=== PATIENT | male | born 1960 | race Caucasian/White ===

== ENCOUNTER 2017-01-15 23:44 | Emergency (ER) | payer BC ==
[~2017-01-15] VITALS: Ht 175.2 cm; Wt 63.5 kg
[2017-01-16] MEDS ORDERED: SEPTDS PO (00:07)
[2017-01-16] MEDS ORDERED: KEFLEX500 M1 PO (00:07)
[2017-01-16] MEDS ORDERED: PERCOCET 5-3251 EACH PO (00:07)
== END 2017-01-16 00:29 | disposition home or self-care (01) ==
LOC: ED 23:44
DX: L02.213 Cutaneous abscess of chest wall (principal); F17.200 Nicotine dependence, unspecified, uncomplicated